=== PATIENT | female | born 1995 | race Caucasian/White ===

== ENCOUNTER 2020-08-26 01:05 | Inpatient (IN) | payer BC ==
[~2020-08-26] VITALS: Ht 167.6 cm; Wt 89.1 kg
[2020-08-26] VITALS (14 sets, daily range): BP systolic 105–136; BP diastolic 60–89; PULSE 75–142; TEMP 97.3–98
--- NOTE | 2020-08-26 01:15 | NUR ---
G1L0. 37-3. Pt tested positive for COVID 08/16/20. Pt denies symptoms now. Reports head cold and loss sease of smell for a couples days but states they are gone now. 08/26 is pts last day of quarentine. Pt assisted to LR1 with spouse. Clean gown on. EFM and TOCO explained and applied. Pt denies leaking of fluids or vaginal bleeding. Reports contractions every couple of mins. Reports having contractions most of the night and they continued to increase intensity. SVE /0, Bolgy bag noted. Plan of care explained to pt. Pt requesting epidural. Pt reports last taking her daily lovenox at 2030 tonight. 0132: called by Aminta GARDINER. See physican notification. 0150: IV started and labs obtained via IV site. LR bolus infusing without difficulty. [place] COOLING TOWER TECHNICIAN notified and states pt has to be 12 hours out from last lovenox shot to receive an epidural. Pt notified and emotional support given. Educated pt to call out when feeling pressure. Call light within reach.
[2020-08-26 01:54] LABS: BASO % 0.2 % (0.0-2.0); EOS # 0.1 (0.0-0.7); EOS % 0.6 % (0-4.0); GRAN # 6.3 (1.4-6.5); GRAN % 58.8 % (42.2-75.2); HEMATOCRIT 38.1 % (37.0-47.0); HEMOGLOBIN 12.6 g/dl (12.5-16.0); LYMPH # 3.5 (1.2-3.4); LYMPH % 32.5 % (20.0-51.0); MEAN CELL VOLUME 93 fl (80.0-100.0); MEAN CORPUSCULAR HEMOGLOBIN 31 pg (27.0-31.0); MEAN CORPUSCULAR HGB CONC 33 g/dl (33.0-37.0); MEAN PLATELET VOLUME 11.2 fl (7.4-10.4); MONO # 0.7 (0.1-0.6); MONO % 6.5 % (1.7-9.3); PLATELET COUNT 187 K/mm3 (130-400); RED BLOOD COUNT 4.08 M/mm3 (4.10-5.30)
[2020-08-26] MEDS ORDERED: PRENATAL MVI PO (02:02)
[2020-08-26] MEDS ORDERED: NATURAL IRON65 MG PO (02:02)
[2020-08-26] MEDS ORDERED: LOVENOX 4040 MG/0.4 SQ (02:02)
--- NOTE | 2020-08-26 02:44 | NUR ---
0234- DR. BOATENG IN ROOM FOR DELIVERY 0235- AROM BY DR. BOATENG, CLEAR FLUID. 0242- SPONTANEOUS VAGINAL DELIVERY OF VIABLE BABY BOY. BABY TO MOTHER'S CHEST. CORD CLAMPED BY DR. BOATENG, CUT BY FOB. BABY CARES ASSUMED BY Stephie WHITING RN. 0244- SPONTANEOUS DELIVERY OF INTACT PLACENTA. PITOCIN STARTED AT 333ML/HR PER PROTOCOL. DR. BOATENG BEGINS REPAIR OF 2ND LACERATION/PERICLITORAL. RED MARISSA TO EMPTY BLADDER, APPROXIMATELY 100MLS OUT. 0300- RECOVERY STARTED AT THIS TIME.
--- NOTE | 2020-08-26 05:25 | NUR ---
Pt up to bathroom, voided 500mls. Pericare provided, peripad and mesh underwear on. Linens changed, pt ambulated to chair. Will remain in labor room for duration of stay due to covid + status.
--- NOTE | 2020-08-26 07:37 | NUR ---
BEDSIDE REPORT DECLINED, PATIENT SLEEPING. REPORT RECEIVED FROM OFF GOING RN, CRAIG Perla CARE TAKEN OVER BY THIS RN.
--- NOTE | 2020-08-26 18:30 | NUR ---
Report recieved. well. Whiteboard updated and POC reviewed.
[2020-08-27] MEDS ORDERED: MOTRIN 800800 MG/TAB PO (07:15)
[2020-08-27 07:43] VITALS: BP 114/68; PULSE 76; TEMP 98.2
== END 2020-08-27 11:54 | disposition home or self-care (01) | DRG 805 ==
LOC: LDRO 01:05 → LDR 01:43
PROVIDERS: Obstetrics & Gynecology; ADMIT Obstetrics & Gynecology
PROC: 10907ZC Drainage of Amniotic Fluid, Therapeutic from Products of Conception, Via Natural or Artificial Opening (ICD-10-PCS; principal; 2020-08-26)
PROC: 10E0XZZ Delivery of Products of Conception, External Approach (ICD-10-PCS; 2020-08-26)
PROC: 0KQM0ZZ Repair Perineum Muscle, Open Approach (ICD-10-PCS; 2020-08-26)
PROC: 0UQMXZZ Repair Vulva, External Approach (ICD-10-PCS; 2020-08-26)
DX: O98.52 Other viral diseases complicating childbirth (principal); U07.1 COVID-19; Z37.0 Single live birth; O99.02 Anemia complicating childbirth; D64.9 Anemia, unspecified; O99.62 Diseases of the digestive system complicating childbirth; K92.9 Disease of digestive system, unspecified; O70.1 Second degree perineal laceration during delivery; Z3A.37 37 weeks gestation of pregnancy; O71.82 Other specified trauma to perineum and vulva
CPT/HCPCS: J2590; J7120

== ENCOUNTER 2023-06-14 06:29 | Inpatient (IN) | payer BC ==
[~2023-06-14] VITALS: Ht 170.2 cm; Wt 91.4 kg
[2023-06-14] VITALS (25 sets, daily range): BP systolic 107–149; BP diastolic 56–80; PULSE 65–112; TEMP 97.7–98
[~2023-06-14 06:29] MED LIST: LOVENOX 4040 MG/0.4 SQ; MOTRIN 800800 MG/TAB PO; NATURAL IRON65 MG PO; PRENATAL MVI PO
--- NOTE | 2023-06-14 06:35 | NUR ---
0635PT ARRIVES AMBULATORY WITH SPOUSE TO UNIT. PT CHANGES INTO GOWN. PT COMFORTABLE IN BED. 0640THIS RN AT BEDSIDE. TOCO AND EFM PLACED. EFM CAT I. PT VITAL SIGNS STABLE. THIS RN DISCUSSES POC WITH PT. PT VERBALIZES UNDERSTANDING. 0650IV STARTED AT THIS TIME. LABS DRAWN. 0700FIRST BAG OF IVF STARTED. 0715SVE AT THIS TIME BY THIS RN. /. PT TOLERATED WELL. 0720PITOCIN STARTED AT THIS TIME PER PROTOCOL. EFM TRACING CAT I.
[2023-06-14] MEDS ORDERED: LR 1,000 ML IV SCH (06:45)
[2023-06-14] MEDS ORDERED: LR & Oxytocin 500 ML IV SCH (06:45)
[2023-06-14 07:19] LABS: BASO % 0.4 % (0.0-2.0); EOS % 0.4 % (0.0-4.0); GRAN # 6.8 K/mm3 (1.4-6.5); GRAN % 68.9 % (42.2-75.2); HEMOGLOBIN 12.2 g/dl (12.5-16.0); LYMPH # 2.3 K/mm3 (1.2-3.4); LYMPH % 22.8 % (20.0-51.0); MEAN CELL VOLUME 93 fl (80.0-100.0); MEAN CORPUSCULAR HEMOGLOBIN 32 pg (27-31); MEAN CORPUSCULAR HGB CONC 34 g/dl (33.0-37.0); MEAN PLATELET VOLUME 11.5 fl (7.4-10.4); MONO # 0.7 K/mm3 (0.1-0.6); MONO % 6.8 % (1.7-9.3); PLATELET COUNT 224 K/mm3 (130-400); RED BLOOD COUNT 3.84 M/mm3 (4.10-5.30); REDCELL DISTRIBUTION WIDTH-CV 12.7 % (11.5-14.5)
[2023-06-14 07:25] LABS: HEMATOCRIT 35.6 % (37.0-47.0)
--- NOTE | 2023-06-14 08:47 | NUR ---
0840DR GAITAN ON UNIT. 0842DR GAITAN AT BEDSIDE. DISCUSSES POC WITH PT. PT VERBALIZES UNDERSTANDING. 0847SVE AT THIS TIME PER DR GAITAN. /2. AROM AT THIS TIME. MODERATE AMOUNT OF CLEAR FLUID NOTED. PT TOLERATED WELL. EFM TRACING CAT I. PT VITAL SIGNS STABLE.
[2023-06-14] MEDS ORDERED: ROPivacaine PF 0.2% 200 ML IV ONE (10:42)
--- NOTE | 2023-06-14 10:56 | NUR ---
1026LOUANN NOTIFIED OF PT REQUEST FOR EPIDURAL. MARINA STATES SHE IS ON HER WAY. IVF BOLUS STARTED. 1040LOUANN ON UNIT. 1045PT UP TO SITTING ON SIDE OF BED. PULSE OX PLACED. PT VITAL SIGNS STABLE. EFM TRACING MATERNAL HR. 1047LOUANN CHIP BIN OPERATOR AT BEDSIDE. DISCUSSE POC WITH PT. PT VERBALIZES AGREEMENT. 1056TEST DOSE ADMINISTERED AT THIS TIME PER MARINA CHIP BIN OPERATOR. PT TOLERATED WELL. 1100PT RETURNED TO BED. PT POSITIONED WEDGE LEFT. PT VITAL SIGNS STABLE. EFM TRACING CAT I. PT COMFORTABLE IN BED.
[2023-06-14] MEDS ORDERED: Ondansetron 4 MG/2 ML VIAL IV PRN (11:15)
[2023-06-14] MEDS ORDERED: diphenhydrAMINE 25 MG CAP PO PRN (11:15)
[2023-06-14] MEDS ORDERED: Naloxone 0.4 MG/ML VIAL IV PRN ×2 (11:15→12:45)
[2023-06-14] MEDS ORDERED: ePHEDrine 50 MG/10 ML VIAL IV PRN (11:15)
[2023-06-14] MEDS ORDERED: diphenhydrAMINE 50 MG/ML 1 ML VIAL IV PRN (11:15)
--- NOTE | 2023-06-14 11:58 | NUR ---
1135FOLEY PLACED AT THIS TIME. PT TOLERATED WELL. EFM TRACING CAT I WITH INTERMITTENT EARLY DECELS NOTED. PT VITAL SIGNS STABLE. 1137SVE AT THIS TIME BY THIS RN WITH A SECOND CHECK BY MARCELO GARDINER. /+2. DR GAITAN NOTIFIED AND ON THE WAY. NURSERY NURSE NOTIFIED. 1140ROOM AND SUPPLIES SET UP FOR DELIVERY. 1152DR PRIDDLE ON UNIT. SALTER REMOVED AT THIS TIME. 1153DR ADWOADDLE AT BEDSIDE. CHARGE NURSE AND NURSERY NURSE AT BEDSIDE. 1155ROOM AND PT SET UP FOR DELIVERY. PT BEGAN PUSHING AT THIS TIME. 1158SVD OF VIABLE MALE PER DR GAITAN. PLACED ON MATERNAL ABDOMEN. CARE ASSUMED BY NURSERY. 1201SVD OF PLACENTA PER DR GAITAN. FIRST DEGREE LACERATION NOTED PER DR GAITAN. REPAIR STARTED AT THIS TIME. 1204REPAIR FINISHED PER DR GAITAN. FUNDUS FIRM AT U. LOCHIA WNL. PT VITAL SIGNS STABLE. 1205ROOM AND BED PUT BACK TOGETHER. PERICARE PERFORMED. ICE PACK PLACED ON PERINEUM. PT COMFORTABLE IN BED.
[2023-06-14] MEDS ORDERED: Magnes Hydrox (MOM) 80 MG/ML 30 ML CUP PO PRN (12:15)
[2023-06-14] MEDS ORDERED: Loratadine 10 MG TAB PO PRN (12:15)
[2023-06-14] MEDS ORDERED: Measles/Mumps/Rubella Virus Vaccine Live w Diluent 0.5 ML VIAL SQ SCH (12:45)
[2023-06-14] MEDS ORDERED: Witch Hazel 50% Pads Bulk TUB TP PRN (12:45)
[2023-06-14] MEDS ORDERED: Phenylephrine/Mineral Oil/Petrolatum 57 GM TUBE RC PRN (12:45)
[2023-06-14] MEDS ORDERED: Acetaminophen 500 MG TAB PO SCH (12:45)
[2023-06-14] MEDS ORDERED: Mag/Al Hydrox/Simeth Susp 30 ML CUP PO PRN (12:45)
[2023-06-14] MEDS ORDERED: Ibuprofen 800 MG TAB PO SCH (12:45)
[2023-06-14] MEDS ORDERED: oxyCODONE 5 MG TAB PO PRN (12:45)
[2023-06-14] MEDS ORDERED: Sennosides/Docusate 8.6-50 MG TAB PO SCH (17:00)
[2023-06-14] MEDS ORDERED: traZODone 50 MG TAB PO PRN (21:00)
[2023-06-15 00:50] VITALS: BP 119/78; PULSE 72; TEMP 98
[2023-06-15 08:00] VITALS: BP 126/76; PULSE 70; TEMP 97.6
--- NOTE | 2023-06-15 08:00 | NUR ---
Rests in bed, alert. States getting ready to breast feed baby. Ibuprofen 800 mg given as ordered.
--- NOTE | 2023-06-15 08:58 | NUR ---
Initial visit; Parents thanked Lever Tender for offering congratulations and God's blessings for the of their son. Lever Tender thanked family for choosing [facility].
--- NOTE | 2023-06-15 14:00 | NUR ---
Rests in bed, alert. Discharge instructions given, verbalizes understanding.
== END 2023-06-15 14:30 | disposition home or self-care (01) | DRG 807 ==
LOC: LDR 06:29 → OB 10:59
PROVIDERS: ADMIT Obstetrics & Gynecology
PROC: 10E0XZZ Delivery of Products of Conception, External Approach (ICD-10-PCS; principal; 2023-06-14)
PROC: 0HQ9XZZ Repair Perineum Skin, External Approach (ICD-10-PCS; 2023-06-14)
PROC: 10907ZC Drainage of Amniotic Fluid, Therapeutic from Products of Conception, Via Natural or Artificial Opening (ICD-10-PCS; 2023-06-14)
PROC: 3E033VJ Introduction of Other Hormone into Peripheral Vein, Percutaneous Approach (ICD-10-PCS; 2023-06-14)
DX: O70.0 First degree perineal laceration during delivery (principal); Z37.0 Single live birth; Z3A.39 39 weeks gestation of pregnancy
CPT/HCPCS: J2590; J2795; J7120